=== PATIENT | male | born 1985 | race African-American/Black ===

== ENCOUNTER 2018-03-15 13:41 | Emergency (ER) | payer OTHER ==
[2018-03-15] MEDS ORDERED: HYDROCODONE-AP1 EAC6 PO (14:44)
[2018-03-15 15:00] VITALS: BP 111/79
== END 2018-03-15 15:00 | disposition home or self-care (01) ==
LOC: ER 13:41
DX: S93.492A Sprain of other ligament of left ankle, initial encounter (principal); W50.2XXA Accidental twist by another person, initial encounter; Y93.67 Activity, basketball; Y92.89 Other specified places as the place of occurrence of the external cause; Y99.8 Other external cause status